=== PATIENT | male | born 1990 | race Caucasian/White ===

== ENCOUNTER 2018-07-19 15:17 | Emergency (ER) | payer OTHER ==
--- NOTE | 2018-07-19 15:31 | ED Physician Documentation ---
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 Lac to top of head and he felt dazed, headache, and off balance. Imroved slowly.) Where head injury occurred: Work Timing - onset: Today Location of injury: Top Quality of pain: Pain, Aching Associated symptoms: AMS (feels dazed and lightheaded, improving.), Nausea / vomiting. No: LOC Symptoms worsen with: Palpation Contributing factors: No: Anticoagulated, Intoxicated Similar symptoms before: Has not had sx before Review of Systems Constitutional: denies: Fever, Chills Nose: denies: Rhinorrhea / runny nose, Congestion Throat: denies: Sore throat Respiratory: denies: Cough Skin: reports: Laceration (s) Neurologic: denies: Generalized weakness, Focal weakness, Numbness, Difficulty speaking, Near syncope Immunocompromised: denies: Immunocompromised PD PAST MEDICAL HISTORY - Past Medical History Cardiovascular: None Respiratory: None Neuro: None Endocrine/Autoimmune: None - Present Medications Home Medications: Ambulatory Orders Medication Instructions Recorded Confirmed No Known Home Medications 07/19/18 07/19/18 - Allergies Allergies/Adverse Reactions: Allergies Allergy/AdvReac Type Severity Reaction Status Date / Time azithromycin [From Zithromax] AdvReac Nausea Verified 07/19/18 15:25 PD ED PE NORMAL - Vitals Vital signs reviewed: Yes - General General: Alert and oriented X 3, No acute distress, Well developed/nourished - HEENT HEENT: PERRL, EOMI, Ears normal, Moist mucous membranes, Pharynx benign, Dentition benign, Other (top of head with 1.5 cm laceration through full t hickness. Did not see any FB. Minimal bleeding at this time. ) - Neck Neck: Supple, no meningeal sign, No bony TTP, No adenopathy - Cardiac Cardiac: RRR, No murmur - Respiratory Respiratory: Clear bilaterally - Abdomen Abdomen: Soft, Non tender - Back Back: No spinal TTP - Derm Derm: Normal color, Warm and dry - Neuro Neuro: Alert and oriented X 3, 911 emergency services dispatcher 2-12 intact, No motor deficit, No sensory deficit, Normal speech Results - Vitals Vitals: Oxygen O2 Source Room air - Rads (name of study) head CT Radiology: Prelim report reviewed (no acute findings) Procedures - Laceration (location) top of head Length in cm: 1.4 Wound type: Linear (1.4), Into subcut fat, Clean Anesthesia: Lidocaine 1% with epi Wound Preparation: Irrigated copiously NS Skin layer closure: Nylon, Interrupted, Size #-0 - enter number (4) Other: Patient tolerated well, Neurovascular intact, Dressing applied, Tetanus UTD PD MEDICAL DECISION MAKING - ED course Complexity details: considered differential (discussed low prob of CT abnormal with this degree of symptoms. They accepted head CT when I gave options and potential risks. ), d/w patient - Sepsis Event Vital Signs: Oxygen O2 Source Room air Departure - Departure Disposition: 01 Home, Self Care Clinical Impression: Scalp contusion Qualifiers: Encounter type: initial encounter Qualified Code(s): S00.03XA - Contusion of scalp, initial encounter Mild concussion Qualifiers: Encounter type: initial encounter Loss of consciousness presence/duration: without LOC Qualified Code(s): S06.0X0A - Concussion without loss of consciousness, initial encounter Condition: Stable Record reviewed to determine appropriate education?: Yes Instructions: ED Concussion, ED Laceration Scalp Stitch Or Stap Comments: Since he got hit in the head and are feeling some headache and slight lightheadedness we would term this mild concussion. Likely this will last for a day or 2 and get better. You could be off work for a day or 2 as needed based on symptoms. It does not sound like a significant concussion. Your CT scan is without any fractures or bleeding inside. Tylenol or ibuprofen if needed for pain. It is okay to wash and shower. Clean off the wound twice a day with soap and water, or peroxide and water. Apply some antibiotic ointment to it to keep it moist. Also to watch for signs of infection such as purulence, redness or increasing pain. Return to your primary care or the ER at the specified time for suture removal. Suture removal 7 or 8 days. Forms: Activity restrictions Discharge Date/Time: 07/19/18 17:04
[2018-07-19] MEDS ORDERED: IBUPROFEN 600 MG TABLET PO STA (15:44)
[2018-07-19] MEDS ORDERED: TETANUS/DIPHTHERIA/PERTUSSIS 0.5 ML SYRINGE IM ONE (15:44)
[2018-07-19] MEDS ORDERED: ACETAMINOPHEN 325 MG TABLET PO STA (15:44)
--- NOTE | 2018-07-19 16:13 | CT Report ---
Reason: head injury vertex Procedure Date: 07/19/2018 Accession Number: [id number] / [id number] Procedure: CT - Head W/O CPT Code: FULL RESULT: EXAM: CT HEAD EXAM DATE: 07/19/2018 04:02 PM. CLINICAL HISTORY: Head injury vertex. Steel implement versus vertex of head. COMPARISON: None. TECHNIQUE: Multiaxial CT images were obtained from the foramen magnum to the vertex. Reformats: Coronal. IV contrast: None. In accordance with CT protocol optimization, one or more of the following dose reduction techniques were utilized for this exam: automated exposure control, adjustment of mA and/or KV based on patient size, or use of iterative reconstructive technique. FINDINGS: Parenchyma: No intraparenchymal hemorrhage. No evidence of mass, midline shift, or CT findings of infarction. Orosco-white differentiation is distinct. Extraaxial Spaces: Normal for age. No subdural or epidural collections identified. Ventricles: Normal in size and position. Cavum septum pellucidum and cavum vergae noted. Sinuses and Orbits: Orbits appear unremarkable. Small left sphenoid mucous retention cyst. Mild right ethmoid sinus opacification. Visualized mastoid air cells appear clear. Bones: No evidence of fracture or calvarial defect. IMPRESSION: No acute intracranial abnormality seen. RADIA
[2018-07-19 16:47] VITALS: BP 129/84
== END 2018-07-19 17:04 | disposition home or self-care (01) ==
LOC: ED 15:17
DX: S01.01XA Laceration without foreign body of scalp, initial encounter (principal); S00.03XA Contusion of scalp, initial encounter; S06.0X0A Concussion without loss of consciousness, initial encounter; W20.8XXA Other cause of strike by thrown, projected or falling object, initial encounter; Y93.89 Activity, other specified; Y99.0 Civilian activity done for income or pay
CPT/HCPCS: 1040M; 12001; 70450; 90471; 90715; 99282; 99283; A9270

== ENCOUNTER 2018-07-31 14:52 | Emergency (ER) | payer OTHER ==
[2018-07-31 14:59] VITALS: BP 119/77
--- NOTE | 2018-07-31 15:07 | ED Physician Documentation ---
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 He was seen in the emergency department here and sutures were placed and he is here today for suture removal. He does have some improvement in his postconcussive symptoms. He has no specific complaints related to the injury itself. Review of Systems Constitutional: denies: Fever Eyes: denies: Decreased vision Ears: denies: Ear pain Nose: denies: Congestion Throat: denies: Sore throat Respiratory: denies: Cough GI: denies: Nausea, Vomiting PD PAST MEDICAL HISTORY - Past Medical History Cardiovascular: None Respiratory: None Neuro: None Endocrine/Autoimmune: None - Past Surgical History Past Surgical History: No - Present Medications Home Medications: Ambulatory Orders Medication Instructions Recorded Confirmed No Known Home Medications 07/19/18 07/19/18 - Allergies Allergies/Adverse Reactions: Allergies Allergy/AdvReac Type Severity Reaction Status Date / Time azithromycin [From Zithromax] AdvReac Nausea Verified 07/31/18 14:57 - Social History Does the pt smoke?: Yes Smoking Status: Current every day smoker Does the pt drink ETOH?: No Does the pt have substance abuse?: Yes - Immunizations Immunizations are current?: No Immunizations: TDAP >10years/unknown - POLST Patient has POLST: No PD ED PE NORMAL - Vitals Vital signs reviewed: Yes (normal ) - General General: Alert and oriented X 3, No acute distress, Well developed/nourished - HEENT HEENT: PERRL, EOMI, Other (There is a healed laceration to the vertex of the scalp without signs of inflammation ) - Neck Neck: Supple, no meningeal sign, No bony TTP - Respiratory Respiratory: No respiratory distress - Derm Derm: Normal color, Warm and dry, No rash - Extremities Extremities: No deformity, No edema - Neuro Neuro: Alert and oriented X 3, family development specialist 2-12 intact, No motor deficit, No sensory deficit, Normal speech Eye Opening: Spontaneous Motor: Obeys Commands Verbal: Oriented GCS Score: 15 - Psych Psych: Normal mood, Normal affect Results - Vitals Vitals: Vital Signs - 24 hr 07/31/18 14:55 Temperature 36.3 C L Heart Rate 86 Respiratory 16 Rate Blood Pressure 119/77 O2 Saturation 99 Oxygen O2 Source Room air Procedures - Suture/staple Removal (location) scalp Suture/staple removal: # sutures (4), No complications PD MEDICAL DECISION MAKING - ED course Complexity details: considered differential, d/w patient ED course: 4 sutures are removed without incident. - Sepsis Event Vital Signs: Vital Signs - 24 hr 07/31/18 14:55 Temperature 36.3 C L Heart Rate 86 Respiratory 16 Rate Blood Pressure 119/77 O2 Saturation 99 Oxygen O2 Source Room air Departure - Departure Disposition: 01 Home, Self Care Clinical Impression: Visit for suture removal Condition: Stable Discharge Date/Time: 07/31/18 15:10
== END 2018-07-31 15:10 | disposition home or self-care (01) ==
LOC: ED 14:52
DX: Z48.02 Encounter for removal of sutures (principal); F17.200 Nicotine dependence, unspecified, uncomplicated
CPT/HCPCS: 99281; 99282

== ENCOUNTER 2024-04-06 07:41 | Outpatient (CLI) | payer OTHER | END 2024-04-06 07:42 | disposition home or self-care (01) | LOC: LAB.S 07:41 | PROVIDERS: ATTEND Internal Medicine | DX: M79.605 Pain in left leg (principal) | CPT/HCPCS: 36415; 85379 ==

== ENCOUNTER 2024-06-05 08:54 | Outpatient (CLI) | payer OTHER ==
--- NOTE | 2024-06-05 14:56 | Ultrasound Report ---
PROCEDURE: Abdomen Complete INDICATIONS: ABD BLOATING TECHNIQUE: Real-time scanning was performed of the abdominal and retroperitoneal organs, with image documentatio n. COMPARISON: None. FINDINGS: Liver: Liver is normal in size and homogeneous in echotexture. Gallbladder: No gallstones, sludge, wall thickening or pericholecystic edema. Biliary ducts: Intrahepatic bile ducts are non-dilated. Extrahepatic bile duct caliber measures 2.9 mm. Normal is 6-7 mm or less in diameter, or 10 mm or less post-cholecystectomy. Pancreas: Visualized portions of the pancreas are sonographically normal. Spleen: Spleen is normal in size and homogeneous in echotexture. Kidneys: Kidneys are normal in size and echotexture. Right kidney measures 11.5 cm long; left kidne y measures 12.2 cm long. No hydronephrosis or nephrolithiasis. No solid masses. No complex renal cy stic lesions which require follow-up. Aorta: Visualized aorta is normal in caliber at less than 3 cm. Iliacs: Proximal common iliac arteries are normal in caliber at less than 2.5 cm. IVC: Intrahepatic inferior vena cava is patent. Miscellaneous: No free abdominal fluid. IMPRESSION: No cause for patient's symptoms is identified. Normal abdominal ultrasound. Reviewed by: Lucio Eastman MD on 06/05/2024 2:55 PM PDT Approved by: Lucio Eastman MD on 06/05/2024 2:55 PM PDT Station ID: [id number]
== END 2024-06-05 08:55 | disposition home or self-care (01) ==
LOC: DI 08:54
PROVIDERS: ATTEND Registered Nurse
DX: R14.0 Abdominal distension (gaseous) (principal)